=== PATIENT | male | born 1965 | race Caucasian/White ===

== ENCOUNTER 2020-07-22 16:40 | Emergency (ER) | payer BC, OTHER ==
[~2020-07-22] VITALS: Ht 180.3 cm; Wt 79.5 kg
[2020-07-22 16:40] VITALS: BP 133/99
[2020-07-22 17:09] LABS: BASOPHILS % (AUTO) 0 % (0-10); EOSINOPHILS # (AUTO) 0.1 10^3/uL (0.0-0.3); EOSINOPHILS % (AUTO) 2 % (0-10); HEMATOCRIT 44 % (40-54); HEMOGLOBIN 14.9 g/dL (13.3-17.7); LYMPHOCYTES # (AUTO) 2.3 10^3/uL (1.0-4.0); LYMPHOCYTES % (AUTO) 33 % (12-44); MEAN CORPUSCULAR HEMOGLOBIN 30 pg (25-34); MEAN CORPUSCULAR HGB CONC 34 g/dL (32-36); MEAN CORPUSCULAR VOLUME 88 fL (80-99); MEAN PLATELET VOLUME 9.3 fL (9.0-12.2); MONOCYTES # (AUTO) 0.9 10^3/uL (0.0-1.0); MONOCYTES % (AUTO) 13 % (0-12); NEUTROPHILS # (AUTO) 3.6 10^3/uL (1.8-7.8); NEUTROPHILS % (AUTO) 52 % (42-75); PLATELET COUNT 221 10^3/uL (130-400)
--- NOTE | 2020-07-22 17:14 | Diagnostic Imaging Report ---
INDICATION: Chest pain. COMPARISON: None. FINDINGS: Single frontal view of the chest demonstrates normal heart size and pulmonary vascularity. The lungs are well aerated and clear. No large pleural effusion or pneumothorax is seen. The visualized osseous structures show no acute abnormalities. IMPRESSION: 1. No acute cardiopulmonary process. Dictated by: Dictated on workstation # [id number]
[2020-07-22 17:26] LABS: ALBUMIN 4.1 GM/DL (3.2-4.5); CHLORIDE 109 MMOL/L (98-107); INR 1.1 (0.8-1.4); POTASSIUM 3.4 MMOL/L (3.6-5.0); PROTHROMBIN TIME PATIENT 14.2 SEC (12.2-14.7); SODIUM 141 MMOL/L (135-145)
[2020-07-22 17:27] LABS: CALCIUM 7.8 MG/DL (8.5-10.1)
[2020-07-22 17:28] LABS: GLUCOSE 138 MG/DL (70-105); TOTAL PROTEIN 6.5 GM/DL (6.4-8.2)
[2020-07-22 17:29] LABS: CARBON DIOXIDE 19 MMOL/L (21-32)
[2020-07-22 17:30] LABS: BILIRUBIN,TOTAL 0.7 MG/DL (0.1-1.0)
[2020-07-22 17:32] LABS: ALKALINE PHOSPHATASE 73 U/L (40-136); CREATININE SERUM 0.88 MG/DL (0.60-1.30); GFR ESTIMATED > 60
[2020-07-22 17:33] LABS: BUN/CREATININE RATIO 14
[2020-07-22 17:35] LABS: ALANINE AMINOTRANSFERASE 31 U/L (0-55); MAGNESIUM 1.6 MG/DL (1.6-2.4)
--- NOTE | 2020-07-22 17:57 | NUR ---
UPDATE TO DAUGHTER
--- NOTE | 2020-07-22 18:57 | NUR ---
REPORT TO DERICK
--- NOTE | 2020-07-22 19:01 | ED Chest Pain ---
General Chief Complaint: Chest Pain Stated Complaint: CHEST PAIN Nursing Triage Note: 1637 TO ED PER EMS PATIENT REPORTS APX 1330 STARTED FEELING LIGHTHEADED AND SOA . ON EMS ARRIVAL PATIENT FOUND TO BE IN SVT WITH A RATE IN 200'S ADENSION 6MG GIVEN BY EMS WITH NO CHANGE 12MG GIVEN PATIENT CONVERTED TO NSR. AND PAIN FREE. ON ADMIT NSR WITH RATE OF 98 PAIN FREE . 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 He had sudden onset of intense chest pain and lightheadedness. Rested did not relieve his symptoms. A coworker called EMS. EMS noted a heart rate greater than 200 that appeared to be SVT. Adenosine 6 mg was administered with no effect. A 12 mg dose then converted him to sinus rhythm. Symptoms immediately began to improve. He now feels very tired but otherwise is asymptomatic. He denies any prior episodes. He denies any known history of Cardiac problems and admits to COPD although he has never smoked. (KELLE PATEL MD) Allergies and Home Medications Allergies Coded Allergies: No Known Drug Allergies (Unverified , 07/22/20) Patient Home Medication List Home Medication List Reviewed: Yes (KELLE PATEL MD) Review of Systems Review of Systems Constitutional: no symptoms reported EENTM: No Symptoms Reported Respiratory: See HPI Cardiovascular: See HPI Gastrointestinal: No Symptoms Reported Genitourinary: No Symptoms Reported Musculoskeletal: no symptoms reported Skin: no symptoms reported Psychiatric/Neurological: No Symptoms Reported Endocrine: No Symptoms Reported Hematologic/Lymphatic: No Symptoms Reported (KELLE PATEL MD) Past Anhicfh-Vauame-Hyqwbp Hx Past Med/Social Hx: Reviewed Nursing Past Med/Soc Hx (KELLE PATEL MD) Patient Social History Alcohol Use: Denies Use Recreational Drug Use: No Smoking Status: Never a Smoker Recent Foreign Travel: No Contact w/Someone Who Travel: No Recent Infectious Disease Expo: No (KELLE PATEL MD) Past Medical History Surgeries: Yes (CYST ) Respiratory: Yes COPD Cardiac: No Neurological: No Genitourinary: No Endocrine: No Cancer: No Did You Recieve Any Treatments: No Psychosocial: No (KELLE PATEL MD) Physical Exam Vital Signs Vital Signs - First Documented 07/22/20 16:40 Temp 35.6 Pulse 98 Resp 18 B/P (MAP) 133/99 (110) Pulse Ox 98 O2 Delivery Room Air (LUCITA CORNELIUS APRN) Vital Signs Capillary Refill : Less Than 3 Seconds (KELLE PATEL MD) Height, Weight, BMI Height: '" Weight: lbs. oz. kg; 24.00 BMI Method: General Appearance: No Apparent Distress, WD/WN HEENT: PERRL/EOMI, Normal ENT Inspection Neck: Normal Inspection Respiratory: Lungs Clear, Normal Breath Sounds, No Accessory Muscle Use Cardiovascular: Regular Rate, Rhythm, No Edema, No Murmur, Normal Peripheral Pulses Gastrointestinal: Normal Bowel Sounds, Non Tender, Soft Extremity: Normal Inspection, No Pedal Edema Neurologic/Psychiatric: Alert, Oriented x3, No Motor/Sensory Deficits, Normal Mood/Affect, special agent fbi II-XII Norm as Tested Skin: Normal Color, Warm/Dry (KELLE PATEL MD) Progress/Results/Core Measures Results/Orders Lab Results Laboratory Tests Test 07/22/20 16:37 07/22/20 19:20 Range/Units White Blood Count 7.0 4.3-11.0 10^3/uL Red Blood Count 5.05 4.30-5.52 10^6/uL Hemoglobin 14.9 13.3-17.7 g/dL Hematocrit 44 40-54 % Mean Corpuscular Volume 88 80-99 fL Mean Corpuscular Hemoglobin 30 25-34 pg Mean Corpuscular Hemoglobin Concent 34 32-36 g/dL Red Cell Distribution Width 14.2 10.0-14.5 % Platelet Count 221 130-400 10^3/uL Mean Platelet Volume 9.3 9.0-12.2 fL Immature Granulocyte % (Auto) 0 % Neutrophils (%) (Auto) 52 42-75 % Lymphocytes (%) (Auto) 33 12-44 % Monocytes (%) (Auto) 13 H 0-12 % Eosinophils (%) (Auto) 2 0-10 % Basophils (%) (Auto) 0 0-10 % Neutrophils # (Auto) 3.6 1.8-7.8 10^3/uL Lymphocytes # (Auto) 2.3 1.0-4.0 10^3/uL Monocytes # (Auto) 0.9 0.0-1.0 10^3/uL Eosinophils # (Auto) 0.1 0.0-0.3 10^3/uL Basophils # (Auto) 0.0 0.0-0.1 10^3/uL Immature Granulocyte # (Auto) 0.0 0.0-0.1 10^3/uL Prothrombin Time 14.2 12.2-14.7 SEC INR Comment 1.1 0.8-1.4 Activated Partial Thromboplast Time 34 24-35 SEC Sodium Level 141 135-145 MMOL/L Potassium Level 3.4 L 3.6-5.0 MMOL/L Chloride Level 109 H 98-107 MMOL/L Carbon Dioxide Level 19 L 21-32 MMOL/L Anion Gap 13 5-14 MMOL/L Blood Urea Nitrogen 12 7-18 MG/DL Creatinine 0.88 0.60-1.30 MG/DL Estimat Glomerular Filtration Rate > 60 BUN/Creatinine Ratio 14 Glucose Level 138 H 70-105 MG/DL Calcium Level 7.8 L 8.5-10.1 MG/DL Corrected Calcium 7.7 L 8.5-10.1 MG/DL Magnesium Level 1.6 1.6-2.4 MG/DL Total Bilirubin 0.7 0.1-1.0 MG/DL Aspartate Amino Transf (AST/SGOT) 18 5-34 U/L Alanine Aminotransferase (ALT/SGPT) 31 0-55 U/L Alkaline Phosphatase 73 40-136 U/L Myoglobin 40.5 10.0-92.0 NG/ML Troponin I < 0.028 0.232 H <0.028 NG/ML B-Type Natriuretic Peptide < 10.0 <100.0 PG/ML Total Protein 6.5 6.4-8.2 GM/DL Albumin 4.1 3.2-4.5 GM/DL (LUCITA CORNELIUS APRN) My Orders Orders - LUCITA CORNELIUS APRN Cbc With Automated Diff (07/22/20 16:50) Magnesium (07/22/20 16:50) Chest 1 View, Ap/Pa Only (07/22/20 16:50) Ekg Tracing (07/22/20 16:50) Comprehensive Metabolic Panel (07/22/20 16:50) Myoglobin Serum (07/22/20 16:50) Protime With Inr (07/22/20 16:50) Partial Thromboplastin Time (07/22/20 16:50) O2 (07/22/20 16:50) Monitor-Rhythm Ecg Trace Only (07/22/20 16:50) Lipid Panel (07/23/20 06:00) Ed Iv/Invasive Line Start (07/22/20 16:50) BNP (07/22/20 16:50) Troponin I (07/22/20 16:50) Enoxaparin Injection (Lovenox Injection) (07/22/20 20:15) (LUCITA CORNELIUS APRN) Vital Signs/I&O 07/22/20 07/22/20 07/22/20 16:40 17:23 18:22 Temp 35.6 Pulse 98 103 100 Resp 18 18 18 B/P (MAP) 133/99 (110) 133/93 (106) 133/93 (106) Pulse Ox 98 99 99 O2 Delivery Room Air Room Air (LUCITA CORNELIUS APRN) Blood Pressure Mean: 106 Progress Progress Note : Time: 19:00 Progress Note Patient's EKG was unremarkable and symptoms improved after conversion to sinus rhythm with adenosine. Labs were likewise unremarkable. Due to the significance of his chest pain, as well as his age, it would be prudent to do a troponin rule out 4 hours from onset of the event. A repeat troponin was ordered for 19:30. Plan was discussed with patient and checkout was provided to the evening providers. (KELLE PATEL MD) Initial ECG Impression Date: Jul 22, 2020 Initial ECG Impression Time: 16:45 Initial ECG Rate: 99 Initial ECG Rhythm: Normal Sinus Initial ECG Intervals: Normal Initial ECG Impression: Normal Comment Normal sinus rhythm with no ST elevation or depression. No abnormal intervals or axis deviation. (KELLE PATEL MD) Diagnostic Imaging Diagonstic Imaging: Xray Plain Films/CT/US/NM/MRI: chest Comments NAME: MANJULA RIDLEY [facility] REC#: [id number] PT STATUS: REG ER : 1965 PHYSICIAN: LUCITA CORNELIUS APRN ADMIT DATE: 07/22/20/ER Draft Date of Exam:07/22/20 CHEST 1 VIEW, AP/PA ONLY INDICATION: Chest pain. COMPARISON: None. FINDINGS: Single frontal view of the chest demonstrates normal heart size and pulmonary vascularity. The lungs are well aerated and clear. No large pleural effusion or pneumothorax is seen. The visualized osseous structures show no acute abnormalities. IMPRESSION: 1. No acute cardiopulmonary process. Dictated on workstation # [id number] Dict: 07/22/201712 Trans: 07/22/201713 [facility] [id number] Interpreted by: MIR GOYAL MD Reviewed: Reviewed by Me (KELLE PATEL MD) Departure Communication (Admissions) 2007-discussed the presentation and the change in troponin with Dr. Lees and Dr. Blue. Recommendation for admission and Lovenox tonight with repeat troponin in the morning. Telemetry overnight. I discussed this recommendation with the patient, he states he is from [place] and would prefer to follow-up with a drop shipment clerk from his hometown. I advised him that that would be conley regardless of whether he stays tonight or not but it would be conley to stay in the hospital so that if he develops another arrhythmia or any recurrent chest pain we can intervene more quickly. He states that he is staying in a hotel here in [place] and would like to be discharged, assures me he will return if he develops any recurrent chest pain or shortness of breath. I also spoke with his daughter Radha who is an RN and she agrees with him that she is comfortable with him going to the hotel and returning for any worsening. We will have him sign out AGAINST MEDICAL ADVICE. (LUCITA CORNELIUS APRN) Impression Primary Impression: Narrow complex tachycardia Additional Impressions: Chest pain Qualified Codes: R07.9 - Chest pain, unspecified Elevated troponin Disposition: AGAINST MEDICAL ADVICE Condition: Against Medical Advice Departure-Patient Inst. Patient Instructions: Supraventricular Tachycardia (SVT) Add. Discharge Instructions: All discharge instructions reviewed with patient and/or family. Voiced understanding. KELLE PATEL MD Jul 22, 2020 19:01 LUCITA CORNELIUS APRN Jul 22, 2020 20:18
[2020-07-22] MEDS ORDERED: ENOXAPARIN 80 MG/0.8 ML (LOVENOX) SYR SC ONE (20:15)
== END 2020-07-22 20:21 | disposition left against medical advice (07) ==
LOC: ER 16:44
DX: R07.89 Other chest pain (principal); R00.0 Tachycardia, unspecified; R79.89 Other specified abnormal findings of blood chemistry; R42 Dizziness and giddiness; R06.02 Shortness of breath
CPT/HCPCS: 36415; 71045; 80053; 83735; 83874; 83880; 84484; 85025; 85610; 85730; 93005; 93041